=== PATIENT | male | born 2000 | race Native Hawaiian/Other Pacific Islander ===

== ENCOUNTER 2022-11-20 11:16 | Emergency (ER) | payer OTHER, SELFPAY ==
[2022-11-20 11:25] VITALS: BP 132/83; PULSE 62; RESP 18; TEMP 36.4; O2SAT 100; BMI 37.3
--- NOTE | 2022-11-20 11:39 | ED_ITS ---
HPI - Extremity Injury (Lower) General Time Seen by Provider: 11:39 Date Seen: 11/20/22 Chief Complaint: Extremity Pain/Injury, Lower Stated Complaint: Pain left ankle Time Seen by Provider: 11/20/22 11:31 Source: patient, RN notes reviewed and interpreter and translator Mode of arrival: ambulatory Limitations: no limitations History of Present Illness HPI Narrative: This 22-year-old male is seen with the aid of the interpreter and translator. He is coming in with left ankle pain, started insidiously but is progressed the point it hurts to walk. Denies any trauma. It has been there about 2 days. No fevers or chills. He admits he is worried because his mom has elevated uric acid levels and has gout. He had a similar episode in his right ankle about 8 months ago and states he just tried walking it out in using some type of pain medicine. He use ice in that ankle. He has not really done anything for this left ankle. He points to the pain behind the lateral malleolus where it is. It is hurting significantly to walk. No other joints are bothering him at this time. Related Data Previous Rx's Medication Instructions Recorded indomethacin 50 mg capsule 50 mg PO TID PRN #21 caps 11/20/22 Allergies Allergy/AdvReac Type Severity Reaction Status Date / Time Penicillins Allergy Verified 11/20/22 11:29 Review of Systems Status of ROS: Reports: 6 or more systems reviewed and unremarkable except as noted in History and below [facility] Social History Smoking Status: Never smoker Do you use any of these nicotine containing products: None Second hand tobacco smoke exposure: No How often do you have a drink containing alcohol: never AUDIT-C Alcohol total score: 0 Non-prescribed substance use: denies use Exam Narrative: Exam Narrative: 22-year-old overweight male is alert int eractive no apparent distress. Inspection of his left lower extremity and ankle reveal no erythema, no ecchymosis, no joint swelling throughout the ankle or foot. His Achilles tendon is intact. He is nontender over either malleoli, anterior joint line/mortise of the ankle is nontender. He has some mild palpable tenderness behind his lateral malleolus almost in distribution of the peroneal tendon. I cannot say that inversion or stressing of this tendon really makes the symptoms worse. Generally, any range of motion about the ankle gives him pain. He has good pulses in this foot, normal light touch sensation. No rash. Skin is warm and appears normal. Const: Vital Signs, click to edit/add: Vital Signs - 24 hr 11/20/22 11:25 Temperature 97.6 F Pulse Rate [Right Pulse Oximeter] 62 Respiratory Rate 18 Blood Pressure [Ri ght Upper Arm] 132/83 Pulse Oximetry 100 Oxygen Delivery Me thod Room Air Documenting provider has reviewed patient's vital signs: yes Course Course Hospital Course: Reviewed with patient tendinitis with the peroneal tendon being afflicted, possible atypical presentation of gout, other issues such as arthritis which would be atypical for young man of his age might all be etiologies. We will do some basic blood work and do an x-ray of his left ankle. Reevaluation(s) Reevaluation #1: Awaiting interpreter and translator to come back over to give patient discharge information. Uric acid is indeed elevated, do feel that this certainly could be an atypical presentation of gout. It may be that it is more of a mid foot joint that is being exacerbated and not just necessarily the ankle. Will do NSAID in the form of indomethacin. Recommend ice and elevation, activity as tolerated. Follow up in clinic within the next 1-2 weeks, consider getting started on anti gout agent when he is improved. Time: 14:45 Vital Signs Vital signs: Initial Vital Signs Temperature 97.6 F 11/20/22 11:25 Temperature Source Temporal Artery Scan 11/20/22 11:25 Pulse Rate 62 11/20/22 11:25 Respiratory Rate 18 11/20/22 11:25 Blood Pressure 132/83 11/20/22 11:25 Blood Pressure Mean 99 11/20/22 11:25 Blood Pressure Position Sitting 11/20/22 11:25 Pulse Oximetry 100 11/20/22 11:25 Oxygen Delivery Method Room Air 11/20/22 11:25 Vital Signs Temperature 97.6 F 11/20/22 11:25 Pulse Rate 62 11/20/22 11:25 Respiratory Rate 18 11/20/22 11:25 Blood Pressure 132/83 11/20/22 11:25 Pulse Oximetry 100 11/20/22 11:25 Oxygen Delivery Method Room Air 11/20/22 11:25 Temperature 97.6 F 11/20/22 11:25 Pulse Rate 62 11/20/22 11:25 Respiratory Rate 18 11/20/22 11:25 Blood Pressure 132/83 11/20/22 11:25 Pulse Oximetry 100 11/20/22 11:25 Oxygen Delivery Method Room Air 11/20/22 11:25 MDM - Extremity Injury (Lower) Lab Data Attestation: I reviewed the patient's lab results. Labs: Lab Results 11/20/22 Range/Units 12:18 WBC 6.45 (4.50-11.00) K/uL RBC 5.52 (4.30-5.90) m/uL Hgb 14.2 (13.5-17.5) gm/dL Hct 44.2 (37.0-53.0) % MCV 80 (80-100) fL MCH 26 (26-34) pg MCHC 32 (32-36) gm/dL RDW Coeff of Lizzy 14.4 (11.5-15.5) % Plt Count 259 (140-440) K/uL Neut % (Auto) 66.3 (42.0-72.0) % Lymph % (Auto) 24.3 (20-44) % Johnston % (Auto) 7.3 (0.0-11.0) % Eos % (Auto) 1.6 (0.0-7.0) % Baso % (Auto) 0.3 (0.0-3.0) % Neut # (Auto) 4.28 (1.7-7.0) K/uL Lymph # (Auto) 1.57 (0.90-2.90) K/uL Johnston # (Auto) 0.50 (0.00-0.90) K/UL Eos # (Auto) 0.10 (0.00-0.50) K/uL Baso # (Auto) 0.02 (0.00-0.30) K/uL Sodium 140 (135-149) mmol/L Potassium 3.9 (3.6-5.1) mmol/L Chloride 106 (96-114) mmol/L Carbon Dioxide 25 (20-32) mmol/L BUN 13 (5-24) mg/dL Creatinine 0.6 (0.5-1.5) mg/dL Estimated Creat Clear 201.09 Estimated GFR 141 ml/min Glucose 122 H (60-115) mg/dL Uric Acid 9.2 H (2.2-8.4) mg/dL Calcium 9.3 (8.4-10.6) mg/dL C-Reactive Protein 1.9 H (0.5-1.0) mg/dL Imaging Data X-ray left ankle: Attestation: I have reviewed the pertinent imaging results. My impression: I see no acute fracture on my preliminary review. Radiologist's impression: Patient: BRAD RANDALL Facility:?[facility] Patient ID:?[id number] Site Patient ID:?[id number]. Site :?[id number] Study:?XRay Extremity Left ANKLE 3 VIEWS-11/20/2022 12:08:02 PM Ordering Physician:Sara Mejia Final Report: Indication: Pain Technique: Three views left ankle Comparison: No comparison Findings: Normal alignment mild diffuse soft tissue swelling. No acute fractures seen. Impression: Dictated by Annmarie Shelton MD @ 11/20/2022 12:31:52 PM (Electronic Signature) Critical Care Time Critical Care Time Critical Care Time: No Discharge Plan Discharge Clinical Impression: Gout Patient Disposition: Home, Self-Care Condition: Stable Instructions: Low Purine Diet (ED), Gout (ED) Additional Instructions: Elevate and ice this ankle, take the medicine as prescribed. Can use supplemental Tylenol with this, 1000 mg up to 3 times a day as needed. May increase activity and walk on this ankle as soon as you are able to. If you are not improving over the next few days with treatment with indomethacin, feel you are worsening in any point, do need to be re-evaluated. In the next 1-2 weeks, do recommend that you follow up in clinic to discuss possible preventative medication for gout. Weight loss, low purine diet can help, minimization of alcohol is also recommended. Activity Level: Activity as Tolerated Prescriptions: New indomethacin 50 mg capsule 50 mg PO TID PRNQty: 21 0RF Rx Instructions: administer with food or milk Stand Alone Forms: [facility] [employer] Info Instructions
--- NOTE | 2022-11-20 11:47 | CRLHL7_ITS ---
For Patients: As a result of the Cures Act, medical imaging exams and procedure reports are released immediately into your electronic medical record. You may view this report before your referring provider. If you have questions, please contact your health care provider. Indication: Pain Technique: Three views left ankle Comparison: No comparison Findings: Normal alignment mild diffuse soft tissue swelling. No acute fractures seen. Impression: Dictated by Annmarie Shelton MD @ 11/20/2022 12:31:52 PM (Electronically Signed)
[2022-11-20 12:27] LABS: Basophils Absolute Auto 0.02 K/uL (0.00-0.30); Basophils Percent Auto 0.3 % (0.0-3.0); Eosinophils Percent Auto 1.6 % (0.0-7.0); Hematocrit 44.2 % (37.0-53.0); Hemoglobin* 14.2 gm/dL (13.5-17.5); Immature Granulocytes Abs Auto 0.01 K/uL (0.00-0.30); Immature Granulocytes Pct Auto 0.2 %; Lymphocytes Absolute Auto 1.57 K/uL (0.90-2.90); Lymphocytes Percent Auto 24.3 % (20-44); Mean Corpuscular HGB Conc 32 gm/dL (32-36); Mean Corpuscular Hemoglobin 26 pg (26-34); Mean Corpuscular Volume 80 fL (80-100); Monocytes Percent Auto 7.3 % (0.0-11.0); Neutrophils Absolute Auto 4.28 K/uL (1.7-7.0); Neutrophils Percent Auto 66.3 % (42.0-72.0); Platelet Count* 259 K/uL (140-440); RDW Coefficient of Variation % 14.4 % (11.5-15.5); Red Blood Count 5.52 m/uL (4.30-5.90); White Blood Count* 6.45 K/uL (4.50-11.00)
[2022-11-20 12:28] LABS: Slide Review Reflex No
[2022-11-20 12:38] LABS: Chloride* 106 mmol/L (96-114); Sodium* 140 mmol/L (135-149)
[2022-11-20 12:39] LABS: Potassium* 3.9 mmol/L (3.6-5.1)
[2022-11-20 12:41] LABS: Creatinine* 0.6 mg/dL (0.5-1.5); Est. Creatinine Clearance* 201.09; Estimated Glomerular Filt Rate 141 ml/min
[2022-11-20 13:24] LABS: Blood Urea Nitrogen* 13 mg/dL (5-24); C Reactive Protein* 1.9 mg/dL (0.5-1.0); Calcium* 9.3 mg/dL (8.4-10.6); Carbon Dioxide* 25 mmol/L (20-32); Glucose* 122 mg/dL (60-115); Uric Acid* 9.2 mg/dL (2.2-8.4)
== END 2022-11-20 14:53 | disposition home or self-care (01) ==
PROVIDERS: Emergency Provider Family Medicine
DX: M10.9 Gout, unspecified (principal)
CPT/HCPCS: 36415; 73610; 80048; 84550; 85025; 86140; 99283; T1013